=== PATIENT | male | born 2000 | race Caucasian/White ===

== ENCOUNTER 2020-12-04 18:19 | Emergency (ER) | payer SELFPAY ==
--- NOTE | 2020-12-04 18:21 | US_ITS ---
WS: [id number] TESTICULAR ULTRASOUND HISTORY: pain COMPARISON: 06/26/2018 TECHNIQUE: Real-time and color Doppler imaging or utilized to perform a testicular ultrasound. Right testicle: 4.8 cm x 2.9 cm x 2.2 cm. Normal size and echogenicity. No mass or torsion. Normal color Doppler is present throughout. Systolic and diastolic velocities are both present. No significant hydrocele. Right epididymis: Normal epididymis with no increased vascularity. Left testicle: 4.4 cm x 2.4 cm x 1.9 cm. Normal size and echogenicity. No mass or torsion. Normal color Doppler is present throughout. Systolic and diastolic velocities are both present. No significant hydrocele. Left epididymis: Mild decreased echogenicity in the LEFT epididymis without significant increased vas cularity. US/US scrotum [id number] IMPRESSION: 1. No testicular torsion or mass. 2. No definite orchitis or epididymitis. Very slight decreased echogenicity in the LEFT epididymis may be early epididymitis.
[2020-12-04 18:42] VITALS: BP 146/97; PULSE 58; RESP 18; TEMP 36.6; O2SAT 99; BMI 23.6
--- NOTE | 2020-12-04 20:05 | ECG_ITS ---
[facility] Test Date: 2020-12-04 Pat Name: Bong Crockett Department: Room: Gender: Male Impression Printer: : 2000 Requested By: Marianela Archer Order Number: [id number] Raghu MD: Nancie Best M.D. Measurements Intervals [place] Rate: 60 P: 33 AL: 139 QRS: 61 QRSD: 96 T: 48 QT: 345 QTc: 345 Interpretive Statements SINUS RHYTHM POSSIBLE RIGHT VENTRICULAR CONDUCTION DELAY [RSR (QR) IN V1/V2] No previous ECG available for comparison Electronically Signed On 12-04-2020 23:59:29 CDT by Nancie Best M.D. [email or web address] community [email or web address]/NU/[id number] f
--- NOTE | 2020-12-04 20:15 | ED_ITS ---
HPI - Male Genitourinary General: Chief complaint: Urogenital-Male Stated complaint: Painful Lump on Testicles Time Seen by Provider: 12/04/20 18:41 Source: patient Mode of arrival: ambulatory Limitations: no limitations History of Present Illness: HPI Narrative: 20-year-old male states he has been having a small pea-sized mass to his left testicle some slight pain. States he noticed it roughly 3 to 5 days ago. He denies any dysuria or discharge. He states he has had epididymitis in the past and this is similar. Patient states he is also been under a lot of stress lately as he is going through a break-up states over the last month he has had some dizziness. He denies any chest pain. Denies any syncopal events. Associated symptoms: Deny dysuria, nausea or vomiting Review of Systems Const: Denies: fever(s), chills, body aches or change in appetite Eyes: Denies: blurry vision or eye discomfort ENMT: Denies: throat pain or dental pain Card: Denies: chest pain Resp: Denies: dyspnea GI: Denies: abdominal pain, nausea, vomiting or diarrhea : Reports: testicular pain and testicular mass; Denies: dysuria Musc: Denies: neck pain or back pain Skin/Breast: Denies: rash Neuro: Reports: dizziness; Denies: headache(s) Psych: Denies: depression Fritz/Lymph: Denies: easy bruising All/Imm: Denies: urticaria Physical Exam Const: COMMON NORMALS: no acute distress, patient oriented x3 and healthy appearing HENMT: COMMON NORMALS: normocephalic and atraumatic HEAD & SCALP: normocephalic and atraumatic Eye: COMMON NORMALS: Equal, round and reactive pupils present and EOMs intact bilaterally PUPIL: Yes Equal, round and reactive pupils present Neck/C-Spine: COMMON NORMALS: full ROM and supple Chest: COMMONS NORMALS: normal inspection of the chest and normal palpation of entire chest wall Resp: COMMON NORMALS: normal respiratory effort, No retractions, No use of accessory muscles and clear to auscultation bilaterally AUSCULTATION: clear to auscultation bilaterally Cardio: COMMON NORMALS: regular rate, regular rhythm and No murmurs present (Cardio) RATE: regular rate RHYTHM: regular rhythm GI: COMMON NORMALS: Normal to inspection, nondistended, normoactive bowel sounds present, Soft to palpation, non-tender and no masses PALPATION: Yes Soft to palpation : OTHER: Slight tenderness to left epididymis Extremity: COMMON NORMALS: normal to inspection and full ROM Neuro: COMMON NORMALS: patient oriented x3, moves all extremities and no focal motor deficits Psych: COMMON NORMALS: mental status grossly normal, Normal thought process present and cooperative THOUGHT PROCESS: Normal thought process present Skin: COMMON NORMALS: no rashes or lesions noted and no wounds GENERAL SKIN EXAM: no rashes or lesions noted Course Vital Signs: Vital signs: Vital Signs Temperature 97.8 F 12/04/20 18:42 Pulse Rate 58 L 12/04/20 18:42 Respiratory Rate 18 12/04/20 18:42 Blood Pressure 146/97 12/04/20 18:42 Pulse Oximetry 99 12/04/20 18:42 MDM - Male MDM Narrative: Medical decision making narrative: Patient presents with epididymitis patient given IM Rocephin here and will prescribe doxycycline. He is had some dizziness as well likely stress related. His EKG here is normal. He has no signs of arrhythmia or pulmonary embolism. He is stable for discharge and is to follow-up his PCP and return if worsening. Imaging Data: US: Attestation: I personally reviewed and interpreted this imaging study as follows: My impression: epididimytis to left testicle EKG Data: EKG 1: Attestation: I personally reviewed and interpreted this EKG as follows: EKG Data: 12/04/20 EKG interpretation time: 20:17 Interpretation: nsr hr [address] r t wave abnormalities qrs 96 qtc 345 Discharge Plan Discharge Patient Disposition: Home Clinical Impression: Epididymitis Condition: Stable Prescriptions: No Action No Known Home Medications RF: 0 Discharge Orders: Discharge ED (Routine); Ordered 12/04/20 Ordered By: Marianela Archer Discharge Diet: Advance as tolerated Discharge Activity: Resume usual activity Patient Instructions: Epididymitis (ED) Coding Level of Care Code ED School Health Aide for Aby Fwd Exam Comprehensive
[2020-12-04 20:48] VITALS: BP 146/97; PULSE 58; RESP 18; O2SAT 99
[2020-12-04 20:55] LABS: Add Urine Microscopic? NO; Charge for UA Resulting for Rev
[2020-12-04 20:56] LABS: Bilirubin Urine Neg (Negative); Blood Urine Neg (Negative); Glucose Urine UA Norm (Normal); Ketones Urine Negative (Negative); Leukocyte Esterase Urine Negative (Negative); Nitrate Urine Negative (Negative); Protein Urine Neg (Negative); Urine Appearance SL Hazy (CLEAR); Urine Color Yellow (Yellow); Urobilinogen Urine Norm (Negative); pH Urine 7 (5-7)
[2020-12-04 20:57] VITALS: BP 146/97; PULSE 58; RESP 18; O2SAT 99
== END 2020-12-04 20:55 | disposition home or self-care (01) ==
PROVIDERS: Emergency Provider Emergency Medicine
DX: N45.1 Epididymitis (principal)
CPT/HCPCS: 76870; 81003; 93005; 96372; 99283; J0696

== ENCOUNTER 2021-07-20 07:15 | Emergency (ER) | payer SELFPAY ==
[2021-07-20 07:28] VITALS: BP 126/79; PULSE 71; RESP 16; TEMP 36.8; O2SAT 99; BMI 22.9
--- NOTE | 2021-07-20 07:40 | CTR_ITS ---
PROCEDURE INFORMATION: Exam: CT Head Without Contrast Exam date and time: 07/20/2021 7:40 AM Age: 20 years old Clinical indication: Other: Syncope; Additional info: Head injury TECHNIQUE: Imaging protocol: Computed tomography of the head without contrast. Radiation optimization: All CT scans at this facility use at least one of these dose optimization techniques: automated exposure control; mA and/or kV adjustment per patient size (includes targeted exams where dose is matched to clinical indication); or iterative reconstruction. COMPARISON: CT head wo con* [id number] 05/13/2015 2:58 PM RADIATION DOSE METRICS: Total DLP (mGy-cm): 968.65 FINDINGS: Brain: Normal. No hemorrhage. Unremarkable white matter. No mass effect. Cerebral ventricles: No ventriculomegaly. Paranasal sinuses: Visualized sinuses are unremarkable. No fluid levels. Mastoid air cells: Persistent right mastoid effusion. Bones/joints: No destructive bony process identified. Soft tissues: Unremarkable. CT/CT head wo con* [id number] IMPRESSION: 1. No acute intracranial injury identified. 2. Persistent right mastoid effusion. Radiation Dose CTDIVOL = (mGy): DLP = 968.65 (mGy-cm)
--- NOTE | 2021-07-20 07:40 | XRR_ITS ---
PROCEDURE INFORMATION: Exam: XR Chest Exam date and time: 07/20/2021 7:40 AM Age: 20 years old Clinical indication: Other: Syncope TECHNIQUE: Imaging protocol: XR of the chest. Views: 1 view. Other technique: Frontal portable upright view of the chest. COMPARISON: CR Chest 2 views* [id number] 04/23/2019 2:08 AM FINDINGS: Lungs: The lungs are clear bilaterally. The pulmonary vasculature is normal. Pleural spaces: No pleural effusion. No pneumothorax. Heart/Mediastinum: The heart is normal in size and contour. Mediastinum: Stable. Bones/joints: Stable. XR/XR chest 1V portable [id number] IMPRESSION: No acute cardiopulmonary abnormality identified. Radiation Dose CTDIVOL = (mGy): DLP = (mGy-cm)
--- NOTE | 2021-07-20 07:41 | ECG_ITS ---
[facility] Test Date: 2021-07-20 Pat Name: Bong Crockett Department: Room: Gender: Male Stitcher Feeder: : 2000 Requested By: Jaja Donovan Order Number: [id number] Raghu MD: JAH MARKS Measurements Intervals [place] Rate: 56 P: -8 [place]: 129 QRS: 61 QRSD: 92 T: 55 QT: 351 QTc: 341 Interpretive Statements SINUS BRADYCARDIA Compared to ECG 12/04/2020 20:17:06 Sinus rhythm no longer present Electronically Signed On 07-21-2021 12:54:09 DIRECTOR OF ANCILLARY SERVICES by JAH MARKS [id number]
--- NOTE | 2021-07-20 07:42 | W.ED.SYNCOPE ---
HPI - Syncope General: Chief Complaint: Syncope Stated Complaint: PASSING OUT/HIGH BLOOD SUGAR Time Seen by Provider: 07/20/21 07:36 Source: patient Mode of arrival: ambulatory Limitations: no limitations History of Present Illness: HPI narrative: Bong is a nice 20-year-old male who comes in complaining of syncopal events. He states that he has had numerous syncopal episodes in the past. Over the past month he says he feels lightheaded and dizzy like he could pass out. He is relating this to his job. He states that he was told to come in today to get checked out as he had the problem again at work last night. He has preceding facial tingling, burning and numbness but denies any chest pain, shortness of breath or palpitations. The patient has not had any seizure activity. He did hit his head once and he has a headache and was told to come in to be evaluated for this. Patient denies any family history of heart problems or early onset heart disease. He has never had this checked out before. Associated symptoms: Deny abdominal pain, chest pain, fever(s), headache(s), lightheadedness, nausea or vertigo Review of Systems Const: Denies: fever(s), chills, body aches, fatigue, malaise or diaphoresis Eyes: Denies: change in vision, blurry vision, photophobia, eye discomfort, eye discharge, eye redness or yellow eyes ENMT: Denies: throat pain, odynophagia, hoarseness, swelling of lips/tongue, ear or mastoid pain, ear discharge, change in hearing or nasal discharge Card: Reports: syncope and pre-syncope; Denies: chest pain, palpitations, irregular heart rhythm, edema, lightheadedness, dyspnea on exertion or orthopnea Resp: Denies: dyspnea, productive cough, non-productive cough, wheezing, hemoptysis or chest congestion GI: Denies: abdominal pain, nausea, vomiting, hematemesis, coffee ground emesis, heartburn, diarrhea, constipation, GI cramping, hematochezia or melena : Denies: flank pain, dysuria, urinary frequency, urinary urgency or hematuria Musc: Denies: neck pain, back pain, extremity pain, extremity swelling, joint pain, joint swelling, joint redness, joint warmth or joint stiffness Skin/Breast: Denies: rash, pruritus, erythema, skin pain or skin tenderness Neuro: Denies: headache(s), numbness in extremities, weakness in extremities, sensory changes, lack of coordination, difficulty walking, dizziness, vertigo, confusion, Slurred speech present or seizure-like activity Fritz/Lymph: Denies: easy bruising, easy bleeding, petechiae, purpura or enlarged lymph nodes All/Imm: Denies: urticaria, throat swelling, tongue swelling, facial swelling or acute wheezing PFSH ED PFSH: Medical History (Updated 07/20/21 @ 09:54 by Jaja Canseco) Hepatitis A Physical Exam Const: COMMON NORMALS: no acute distress, patient oriented x3, no limitations and alert GENERAL APPEARANCE: cooperative HENMT: COMMON NORMALS: normocephalic, atraumatic, external ears normal, EAC's normal and Normal external nose present HEAD & SCALP: normal to inspection, normocephalic and atraumatic FACE & SINUS: normal facial exam and face symmetric NOSE: Normal external nose present and Normal nares present EXTERNAL EAR: Yes external ears normal EXTERNAL AUDITORY CANAL: EAC's normal MOUTH: Normal oral and palatal mucosa present, lip normal and tongue normal Eye: COMMON NORMALS: Equal, round and reactive pupils present and conjunctivae normal GENERAL EYE: appearance normal, both eyes and all related structures ALIGNMENT: Yes alignment normal PERIORBITAL: periorbital findings normal EYELID: eyelids normal CONJUNCTIVA: Yes conjunctivae normal SCLERA: sclerae normal PUPIL: Yes Equal, round and reactive pupils present Neck/C-Spine: COMMON NORMALS: full ROM, no lymphadenopathy, supple, no meningeal signs and no JVD GENERAL: Yes normal visual inspection and Yes trachea midline Chest: COMMONS NORMALS: normal inspection of the chest and normal palpation of entire chest wall Resp: COMMON NORMALS: normal respiratory effort, No retractions, No use of accessory muscles and clear to auscultation bilaterally EFFORT & INSPECTION: Yes able to speak in complete sentences and Yes symmetric chest movement AUSCULTATION: clear to auscultation bilaterally, no crackles, no rales, no rhonchi and no wheezes Cardio: COMMON NORMALS: no JVD, regular rate, regular rhythm, S1 normal heart sound present and S2 normal heart sound present RATE: regular rate RHYTHM: regular rhythm HEART SOUNDS: S1 normal heart sound present, S2 normal heart sound present, no click, no gallops, no murmurs and no rubs GI: COMMON NORMALS: Soft to palpation and No hepatosplenomegaly present PALPATION: Yes Soft to palpation, No Tenderness to palpation present (GI), No Guarding due to palpation present (GI), No Rigid due to palpation, Yes No hepatosplenomegaly present, No Hernia present, No Palpable mass present and No Pulsatile mass present : COMMON NORMALS: Yes no CVA tenderness BLADDER/KIDNEY EXAM: Yes no CVA tenderness Back/Pelvis: COMMON NORMALS: no CVA tenderness, thoracic and lumbar spine normal to inspection, no thoracic nor lumbar tenderness and thoraco-lumbar ROM normal Extremity: COMMON NORMALS: normal to inspection, full ROM, capillary refill normal, no joint enlargement, no clubbing, cyanosis or edema and no calf tenderness Neuro: COMMON NORMALS: patient oriented x3, CN's II-XII intact bilaterally, moves all extremities, no focal motor deficits and no sensory deficits noted SENSORIUM/ORIENTATION: Yes alert MENINGEAL SIGNS: Yes no meningeal signs SPEECH: speech normal Psych: COMMON NORMALS: mental status grossly normal, Normal thought process present, cooperative, normal affect, speech normal and activity/motor behavior normal SPEECH: Yes normal speech THOUGHT PROCESS: Normal thought process present Skin: COMMON NORMALS: no rashes or lesions noted, turgor normal, no jaundice, no petechiae and no mottling GENERAL SKIN EXAM: no rashes or lesions noted and turgor normal Course Vital Signs: Vital signs: Vital Signs Temperature 98.3 F 07/20/21 07:28 Pulse Rate 61 07/20/21 08:33 Respiratory Rate 14 07/20/21 08:33 Blood Pressure 144/104 07/20/21 08:33 Pulse Oximetry 98 07/20/21 08:33 MDM - Syncope MDM Narrative: Medical decision making narrative: 0945 -the patient is feeling better and is ready to go home. Is unclear whether he has had a true syncopal episode or not or if he is just fatigued and tired. The patient states he has had several of these episodes over the past month. He was claiming them to be due to fatigue but he describes a vagal prodrome of feeling weak all over along with feeling flushed and tingling in his face before he almost passes out. He denies any chest pain, palpitations, shortness of breath or other red flags to go along with his presyncopal symptoms. His EKG shows no evidence of Hriom-Oxegoxgyb-Nkwhu syndrome, obstructed AV pathway, Brugada syndrome, bifascicular blocks, Hcuz-Jlcews-Pwplpm syndrome, epsilon waves or long or short QT syndrome. There is no sign of LVH. There is no sign of pericarditis, myocarditis or any other lethal arrhythmia. The patient states he is ready to go home. He has received some IV fluids. He states he is feeling better. Due to the recurrence of the symptoms I will have him follow-up with cardiology for reevaluation. Patient understands the importance of this that he needs further evaluation and he agrees to do so. He also agrees to return here if his symptoms change or worsen. Lab Data: Attestation: I reviewed the patient's lab results. Labs: Lab Results 07/20/21 07/20/21 07/20/21 08:25 08:25 08:25 WBC 9.1 10^3/uL 10^3/ uL (4.0-10.0) RBC 5.46 10^6/uL H 10 ^6/uL (4.1-5.3) Hgb 16.0 g/dL g/dL (11.7-16.6) Hct 47.8 % % (42.0-52.0) MCV 87.5 fl fl (80-94) MCH 29.3 pg pg (28.0-34.0) MCHC 33.5 g/dL g/dL (30.0-36.0) RDW 11.9 % L % (12.1-15.1) Plt Count 230 10^3/cmm 10^3 /cmm (130-400) MPV 9.7 fL fL (7.4-10.4) Neut % (Auto) 59.1 % % Lymph % (Auto) 31.0 % % [place] % (Auto) 8.2 % % Eos % (Auto) 1.1 % % Baso % (Auto) 0.4 % % Neut # (Auto) 5.36 10^3/uL 10^3 /uL (1.8-7.7) Lymph # (Auto) 2.8 10^3/uL 10^3/ uL (0.8-4.8) [place] # (Auto) 0.7 10^3/uL 10^3/ uL (0.2-0.9) Eos # (Auto) 0.1 10^3/uL 10^3/ uL (0.0-0.8) Baso # (Auto) 0.0 10^3/uL 10^3/ uL (0.0-0.1) Nucleated RBC % (a uto) 0 % % Nucleated RBCs # 0.0 /100WBC /100W BC PT 13.50 SECONDS SEC ONDS (12.1-14.9) INR 1.00 (0.8-1.2) APTT 30.5 SECONDS SECO NDS (23.9-36.7) Sodium 138 mmol/L mmol/L (136-145) Potassium 4.7 mmol/L mmol/L (3.5-5.1) Chloride 101 mmol/L mmol/L (98-107) Carbon Dioxide 26 mmol/L mmol/L (22-29) Anion Gap 15.7 (5-19) BUN 18 mg/dL mg/dL (6-20) Creatinine 0.7 mg/dL mg/dL (0.7-1.2) GFR Calculation 141.0 mL/min H mL /min (90-130) Glucose 91 mg/dL mg/dL (65-115) Calculated Osmolal ity 287 mOsm/kg mOsm/ kg (285-295) Calcium 9.1 mg/dL mg/dL (8.5-10.5) Magnesium 2.0 mg/dL mg/dL (1.7-2.3) Total Bilirubin 0.4 mg/dL mg/dL (0.15-1.2) AST 20 U/L U/L (0-40) ALT 14 U/L U/L (0-41) Alkaline Phosphata se 64 IU/L IU/L (40-130) Troponin T Baselin e Total Protein 6.9 g/dL g/dL (6.6-8.7) Albumin 4.8 g/dL g/dL (3.5-5.2) Globulin 2.1 g/dL g/dL (1.3-4.6) TSH 1.86 uIU/mL uIU/m L (0.27-4.20) Free T4 1.39 ng/dL ng/dL (0.82-1.77) Urine Color Urine Appearance Urine pH Ur Specific Gravit y Urine Protein Urine Glucose (UA) Urine Ketones Urine Blood Urine Nitrate Urine Bilirubin Urine Urobilinogen Ur Leukocyte Luisa ase Urine Opiates Scre en Ur Barbiturates Sc reen Ur Phencyclidine S crn Ur Amphetamines Sc reen U Benzodiazepines Scrn Urine Cocaine Scre en U Marijuana (THC) Screen Ethyl Alcohol < 10 mg/dL mg/dL (0-10) 07/20/21 07/20/21 07/20/21 08:25 08:25 08:25 WBC RBC Hgb Hct MCV MCH MCHC RDW Plt Count MPV Neut % (Auto) Lymph % (Auto) [place] % (Auto) Eos % (Auto) Baso % (Auto) Neut # (Auto) Lymph # (Auto) [place] # (Auto) Eos # (Auto) Baso # (Auto) Nucleated RBC % (a uto) Nucleated RBCs # PT INR APTT Sodium Potassium Chloride Carbon Dioxide Anion Gap BUN Creatinine GFR Calculation Glucose Calculated Osmolal ity Calcium Magnesium Total Bilirubin AST ALT Alkaline Phosphata se Troponin T Baselin e 6 ng/L ng/L (0-15) Total Protein Albumin Globulin TSH Free T4 Urine Color Yellow (Yellow) Urine Appearance Clear (CLEAR) Urine pH 6 (5-7) Ur Specific Gravit y 1.020 (1.005-1.030) Urine Protein Neg (Negative) Urine Glucose (UA) Norm (Normal) Urine Ketones Negative (Negative) Urine Blood Neg (Negative) Urine Nitrate Negative (Negative) Urine Bilirubin Neg (Negative) Urine Urobilinogen Norm mg/dL mg/dL (Negative) Ur Leukocyte Luisa ase Negative (Negative) Urine Opiates Scre en Negative ng/mL ng /mL (Negative) Ur Barbiturates Sc reen Negative ng/mL ng /mL (Negative) Ur Phencyclidine S crn Negative ng/mL ng /mL (Negative) Ur Amphetamines Sc reen Negative ng/mL ng /mL (Negative) U Benzodiazepines Scrn Negative ng/mL ng /mL (Negative) Urine Cocaine Scre en Negative ng/mL ng /mL (Negative) U Marijuana (THC) Screen Negative ng/mL ng /mL (Negative) Ethyl Alcohol Imaging Data^: CT Head: Radiologist's impression: [facility] [id number] Scan ReportSigned Patient: Bong Crockett #: [id number]: 2000Acct#:[id number]/Sex: 20 / MADM Date: 07/20/21Loc: ERRoom/Bed:Attending Dr: Ordering Provider/Ordering MD: Jaja Canseco DO Date of Service: 07/20/21 Procedure(s): CT head wo con* [id number] Accession Number(s): [id number] Report Number: [id number] PROCEDURE INFORMATION: Exam: CT Head Without Contrast Exam date and time: 07/20/2021 7:40 AM Age: 20 years old Clinical indication: Other: Syncope; Additional info: Head injury TECHNIQUE: Imaging protocol: Computed tomography of the head without contrast. Radiation optimization: All CT scans at this facility use at least one of these dose optimization techniques: automated exposure control; mA and/or kV adjustment per patient size (includes targeted exams where dose is matched to clinical indication); or iterative reconstruction. COMPARISON: CT head wo con* [id number] 05/13/2015 2:58 PM RADIATION DOSE METRICS: Total DLP (mGy-cm): 968.65 FINDINGS: Brain: Normal. No hemorrhage. Unremarkable white matter. No mass effect. Cerebral ventricles: No ventriculomegaly. Paranasal sinuses: Visualized sinuses are unremarkable. No fluid levels. Mastoid air cells: Persistent right mastoid effusion. Bones/joints: No destructive bony process identified. Soft tissues: Unremarkable. CT/CT head wo con* [id number] IMPRESSION: 1. No acute intracranial injury identified. 2. Persistent right mastoid effusion. Radiation Dose CTDIVOL = (mGy): DLP = 968.65 (mGy-cm) Dictated By:Jose Ernst MDSigned By:Jose Ernst MDSigned Date/Time:07/20/21 0817DD/ 0740 CXR: My impression: No acute cardiopulmonary findings. Normal heart size. Lungs clear of infiltrate or effusions. No bony lesions present. EKG Data^: EKG 1: Attestation: I personally reviewed and interpreted this EKG as follows: Interpretation: 0828 -sinus bradycardia at 56 beats a minute, benign early repolarization, no signs pericarditis/PA depression or elevation in aVR of the PA segment. No other acute findings. Discharge Plan Discharge Patient Disposition: Home Clinical Impression: Near syncope Condition: Stable Prescriptions: No Action No Known Home Medications RF: 0 Discharge Orders: Discharge ED (Routine); Ordered 07/20/21 Ordered By: Jaja Canseco Referrals: John Bolton MD [Physician] - (1-2 days.) Discharge Diet: Usual diet Discharge Activity: Limit activity as instructed Patient Instructions: Syncope (ED), Near Syncope (ED), Lightheadedness (ED), Opioid Safety Activity Restrictions/Additional Instructions: Please return to the ER immediately for any of the signs or symptoms listed on your discharge instruction sheets, worsening/changing of your symptoms, you are not getting better as quickly as expected, or for ANY other cause or concerns. Be certain to do do anything exerting such as exercise, heavy manual labor, or anything that would put you at risk to exert your heart. Be certain to follow-up with Dr. Al for recheck. If you have any other spells of passing out or nearly passing out prior to seeing Dr. Al please return to the ER immediately for recheck. Coding Level of Care Code ED Cashier Self Service Gasoline for Aby Fwd Exam Comprehensive
[2021-07-20 08:33] VITALS: BP 144/104; PULSE 61; RESP 14; O2SAT 98
[2021-07-20] MEDS: lactated ringers 1,000 ML 999 ML IV ×2 (08:40)
[2021-07-20 08:49] LABS: Add Urine Microscopic? NO; Charge for UA Resulting for Rev
[2021-07-20 08:50] LABS: Basophils % 0.4 %; Eosinophils # 0.1 10^3/uL (0.0-0.8); Eosinophils % 1.1 %; Hematocrit 47.8 % (42.0-52.0); Lymphocytes # 2.8 10^3/uL (0.8-4.8); Mean Corpuscular HGB Conc 33.5 g/dL (30.0-36.0); Mean Corpuscular Hemoglobin 29.3 pg (28.0-34.0); Mean Corpuscular Volume 87.5 fl (80-94); Mean Platelet Volume 9.7 fL (7.4-10.4); Monocytes # 0.7 10^3/uL (0.2-0.9); Monocytes % 8.2 %; Neutrophils # 5.36 10^3/uL (1.8-7.7); Neutrophils % 59.1 %; Nucleated Red Blood Cells % 0 %; Platelet Count 230 10^3/cmm (130-400); Red Blood Count 5.46 10^6/uL (4.1-5.3); Red Cell Distribution Width 11.9 % (12.1-15.1); White Blood Count 9.1 10^3/uL (4.0-10.0)
[2021-07-20 08:59] LABS: Bilirubin Urine Neg (Negative); Blood Urine Neg (Negative); Glucose Urine UA Norm (Normal); Ketones Urine Negative (Negative); Leukocyte Esterase Urine Negative (Negative); Nitrate Urine Negative (Negative); Protein Urine Neg (Negative); Urine Appearance Clear (CLEAR); Urine Color Yellow (Yellow); Urobilinogen Urine Norm (Negative); pH Urine 6 (5-7)
[2021-07-20 09:03] LABS: Amphetamines Screen Urine Negative (Negative); Barbiturates Screen Urine Negative (Negative); Benzodiazepines Screen Urine Negative (Negative); Cocaine Screen Urine Negative (Negative); Opiate Screen Urine Negative (Negative); PCP Screen Urine Negative (Negative); THC Screen Urine Negative (Negative)
[2021-07-20 09:07] LABS: Partial Thromboplastin Time 30.5 SECONDS (23.9-36.7)
[2021-07-20 09:12] LABS: Troponin(5th) Baseline 6 ng/L (0-15)
[2021-07-20 09:22] LABS: Alanine Aminotransferase 14 U/L (0-41); Albumin Level 4.8 g/dL (3.5-5.2); Alkaline Phosphatase 64 IU/L (40-130); Anion Gap 15.7 (5-19); Aspartate Amino Transferase 20 U/L (0-40); Blood Urea Nitrogen 18 mg/dL (6-20); Calcium 9.1 mg/dL (8.5-10.5); Carbon Dioxide 26 mmol/L (22-29); Chloride 101 mmol/L (98-107); Free T4 Free Thyroxine 1.39 ng/dL (0.82-1.77); Globulin 2.1 g/dL (1.3-4.6); Glucose 91 mg/dL (65-115); Osmolality Calculated 287 mOsm/kg (285-295); Potassium 4.7 mmol/L (3.5-5.1); Sodium 138 mmol/L (136-145); Thyroid Stimulating Hormone 1.86 uIU/mL (0.27-4.20); Total Bilirubin 0.4 mg/dL (0.15-1.2); Total Protein 6.9 g/dL (6.6-8.7)
[2021-07-20 09:42] LABS: Alcohol Level < 10 mg/dL (0-10)
[2021-07-20 10:03] VITALS: BP 125/80; PULSE 68; O2SAT 96
== END 2021-07-20 10:05 | disposition home or self-care (01) ==
PROVIDERS: Emergency Provider Emergency Medicine
DX: R55 Syncope and collapse (principal)
CPT/HCPCS: 70450; 71045; 80053; 80306; 80307; 81003; 83735; 84439; 84443; 84484; 85025; 85610; 85730; 93005; 96360; 99284

== ENCOUNTER 2023-10-14 20:54 | Emergency (ER) | payer SELFPAY ==
[2023-10-14 21:06] VITALS: BP 133/83; PULSE 88; RESP 16; TEMP 37.2; O2SAT 97
--- NOTE | 2023-10-14 21:14 | ED_ITS ---
HPI - URI/Sore Throat General: Chief Complaint: Upper Respiratory Infection Stated Complaint: Fever\Coughing\SOB Time Seen by Provider: 10/14/23 21:14 History of Present Illness: 23-year-old male patient comes in today with cough and difficulty breathing through his nose for the last 5 days. Patient feels poorly. Patient appears nontoxic. Patient appears mildly unwell. Review of Systems General: Reports: 10 or more systems reviewed and unremarkable except in HPI and below PFS ED PFSH: Medical History (Updated 10/14/23 @ 22:43 by ELISA Cardozo) Hepatitis A Physical Exam Const: COMMON NORMALS: alert HENMT: COMMON NORMALS: normocephalic HEAD & SCALP: normocephalic Neck/C-Spine: COMMON NORMALS: full ROM Resp: COMMON NORMALS: normal respiratory effort and clear to auscultation b ilaterally AUSCULTATION: clear to auscultation bilaterally Cardio: COMMON NORMALS: regular rate and regular rhythm RATE: regular rate RHYTHM: regular rhythm Back/Pelvis: COMMON NORMALS: thoracic and lumbar spine normal to inspection Extremity: COMMON NORMALS: normal to inspection Neuro: SENSORIUM/ORIENTATION: Yes alert Skin: COMMON NORMALS: turgor normal GENERAL SKIN EXAM: turgor normal Course Vital Signs: Vital signs: Vital Signs Temperature 98.9 F 10/14/23 21:06 Pulse Rate 88 10/14/23 21:06 Respiratory Rate 16 10/14/23 21:06 Blood Pressure 133/83 10/14/23 21:06 Pulse Oximetry 97 10/14/23 21:06 MDM - URI/Sore Throat Medical Decision Making Patient comes in with cough and congestion and difficulty breathing for the last 5 days. Patient also reports body aches and chills. Vital signs are normal at this time. Lungs are clear to auscultation. Skin is warm and dry. Differential diagnosis includes but not limited to pneumonia, bronchitis, influenza, COVID. Patient was positive for influenza type B. Patient was given a dose of dexamethasone to help with his cough and congestion. Patient was written for Promethazine DM for further cough relief. Patient appears nontoxic. Patient appears no acute distress. Patient reports understanding of care plan need for follow-up or return to the ER. Lab Data Radiology Impressions Chest X-Ray 10/14/23 21:14 IMPRESSION: No acute findings. Laboratory Results Influenza Type A Ag negative (Negative) 10/14/23 21:47 Influenza Type B Ag positive (Negative) H 10/14/23 21:47 SARS-CoV-2 Ag (Rapid) negative (Negative) 10/14/23 21:47 All radiology interpretation(s) finalized by discharge Discharge Plan Discharge Patient Disposition: Home Clinical Impression: Influenza, Bronchitis Condition: Stable Prescriptions: New promethazine-DM 6.25-15 mg/5 mL syrup 5 ml PO Q6H PRN (Reason: cough) Qty: [phone] Discharge Orders: Discharge ED (Routine); Ordered 10/14/23 Ordered By: Alber Tinsley Discharge Diet: Usual diet Discharge Activity: Increase activity as tolerated Patient Instructions: Influenza (ED) Activity Restrictions/Additional Instructions: Home and rest. Drink plenty water and fluids. Use acetaminophen and/or ibuprofen for pain and fever. Activity as tolerated. Follow-up with primary care for further instructions. 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
--- NOTE | 2023-10-14 21:14 | XRR_ITS ---
PROCEDURE INFORMATION: Exam: XR Chest Exam date and time: 10/14/2023 9:45 PM Age: 23 years old Clinical indication: Cough TECHNIQUE: Imaging protocol: Radiologic exam of the chest. Views: 1 view. COMPARISON: CR XR chest 1V portable [id number] 07/20/2021 7:57 AM FINDINGS: Lungs: Unremarkable. No consolidation. Pleural spaces: Unremarkable. No pleural effusion. No pneumothorax. Heart/Mediastinum: Unremarkable. No cardiomegaly. Bones/joints: Unremarkable. XR/XR chest 1V portable [id number] IMPRESSION: No acute findings.
[2023-10-14 22:30] LABS: Influenza A by IFA negative (Negative); Influenza B by IFA positive (Negative)
[2023-10-14 22:37] LABS: SARS Covid-2 Antigen negative (Negative)
[2023-10-14] MEDS: HYDROcodone-acetaminophen 5-325 mg Tablet 1 TAB PO (23:06)
== END 2023-10-14 23:12 | disposition home or self-care (01) ==
PROVIDERS: Emergency Provider Nurse Practitioner Family
DX: J10.1 Influenza due to other identified influenza virus with other respiratory manifestations (principal); J40 Bronchitis, not specified as acute or chronic; Z11.52 Encounter for screening for COVID-19
CPT/HCPCS: 71045; 87426; 87804; 99284

== ENCOUNTER → 2025-05-08 15:32 | Outpatient (BNVA) | payer MEDICAID, SELFPAY | PROVIDERS: Visit Provider Emergency Medicine | DX: Z20.2 Contact with and (suspected) exposure to infections with a predominantly sexual mode of transmission (principal) | CPT/HCPCS: 81000; 87086; 87491; 87591; 87661 ==